=== PATIENT | female | born 1975 | race Caucasian/White ===

== ENCOUNTER 2021-06-04 23:21 | Emergency (ER) | payer OTHER ==
[2021-06-04 23:52] LABS: BILIRUBIN NEGATIVE (NEGATIVE); BLOOD 3+ Ery/uL (NEGATIVE); CLARITY CLEAR (CLEAR); COLOR YELLOW (YELLOW); GLUCOSE (U) 3+ mg/dL (NORMAL); LEUKOCYTES 2+ Leu/uL (NEGATIVE); NITRITE NEGATIVE (NEGATIVE); PROTEIN TRACE (LOW) mg/dL (NEGATIVE); UROBILINOGEN 0.2 mg/dL (0.2-1.0)
[2021-06-04 23:58] LABS: BACTERIA 2+; URINARY WBC TNTC
[2021-06-05 01:23] LABS: BASOPHIL 0.5 % (0-2); EOSINOPHIL 1.5 % (0-5); HCT 44.6 % (37.0-47.0); HGB 15.3 g/dl (12.5-16.0); LYMPHOCYTE 15.1 % (15-48); MCHC 34.3 g/dL (32.0-36.0); MCV 87.5 fL (78.0-100.0); MONOCYTE 6.4 % (0-12); MPV 10.4 fL (6.0-9.5); NEUTROPHIL 76.1 % (41-80); NRBC 0; PLT 320 K/uL (150-400); RDW 12.4 % (11.5-14.0); WBC 16.7 K/uL (4.0-10.5)
[2021-06-05 01:40] LABS: ALBUMIN 4.2 g/dL (3.4-5.0); BILIRUBIN - TOTAL 0.4 mg/dL (0.2-1.0); BUN/CREAT RATIO (CALC) 20.3 RATIO; CREATININE 0.64 mg/dL (0.51-0.95); POTASSIUM 3.5 mmol/L (3.5-5.1); TOTAL PROTEIN 8.2 g/dL (6.4-8.2)
[2021-06-05] MEDS ORDERED: NORCO 5-325 TA1 EACH PO (03:58)
[2021-06-05] MEDS ORDERED: ONDANSETRON ODT4 MG SL (03:58)
[2021-06-05] MEDS ORDERED: CIPRO500 MG PO (03:58)
== END 2021-06-05 04:10 | disposition home or self-care (01) ==
LOC: FER 23:21
PROVIDERS: Emergency Medicine Emergency Medical Services
DX: N30.00 Acute cystitis without hematuria (principal); N83.8 Other noninflammatory disorders of ovary, fallopian tube and broad ligament; E11.9 Type 2 diabetes mellitus without complications; I10 Essential (primary) hypertension; E78.5 Hyperlipidemia, unspecified; Z98.890 Other specified postprocedural states; Z90.49 Acquired absence of other specified parts of digestive tract; Z79.899 Other long term (current) drug therapy
CPT/HCPCS: 36415; 80053; 81001; 85025; 87076; 87088; 87186; J0696; J1170; J1885; J2405; J7030